=== PATIENT | female | born 1960 | race Caucasian/White ===

== ENCOUNTER 2018-07-11 11:38 | Emergency (ER) | payer OTHER ==
[~2018-07-11] VITALS: Ht 172.7 cm; Wt 113.8 kg
[2018-07-11] MEDS ORDERED: METOPROLOL SUCC50 MG PO (11:49)
[2018-07-11] MEDS ORDERED: LOSARTAN-HCTZ1 EAC2 PO (11:49)
[2018-07-11] MEDS ORDERED: NAPROSYN500 MG PO (12:25)
[2018-07-11] MEDS ORDERED: NORCO 5-325 TA1 EACH PO (12:25)
== END 2018-07-11 12:50 | disposition home or self-care (01) ==
LOC: ED 11:38
DX: S80.01XA Contusion of right knee, initial encounter (principal); I10 Essential (primary) hypertension; Z79.899 Other long term (current) drug therapy; W01.0XXA Fall on same level from slipping, tripping and stumbling without subsequent striking against object, initial encounter
CPT/HCPCS: 73560; 99283